=== PATIENT | female | born 1970 | race Caucasian/White ===

== ENCOUNTER 2019-04-11 21:26 | Emergency (ER) | payer OTHER ==
[~2019-04-11] VITALS: Ht 162.6 cm; Wt 90.7 kg
[~2019-04-11 21:26] MED LIST: CARISOPRODOL 3350 MG PO; MEDROLDOSEPACK PO; PERCOCET 5-3251 EACH PO
[2019-04-11 22:50] VITALS: BP 142/81
== END 2019-04-11 22:50 | disposition home or self-care (01) ==
LOC: ER 21:26
DX: S93.492A Sprain of other ligament of left ankle, initial encounter (principal); I10 Essential (primary) hypertension; Z88.8 Allergy status to other drugs, medicaments and biological substances; W10.9XXA Fall (on) (from) unspecified stairs and steps, initial encounter; Y92.89 Other specified places as the place of occurrence of the external cause; Y93.89 Activity, other specified; Y99.8 Other external cause status